=== PATIENT | female | born 1955 | race Caucasian/White ===

== ENCOUNTER 2017-10-22 20:15 | Inpatient (IN) | payer BC ==
[2017-10-22] MEDS ORDERED: ONDANSETRON HCL INJ/PF 4 MG/2 ML SDV IV ONE (20:42)
[2017-10-22] MEDS ORDERED: NORMAL SALINE 1000 ML 500 ML IV ONE (20:42)
--- NOTE | 2017-10-22 20:46 | ER Document Report ---
ED General - General Chief Complaint: General Weakness Stated Complaint: WEAKNESS Time Seen by Provider: 10/22/17 20:37 Notes: Patient is a 61-year-old female who comes emergency department for chief complaint of feeling lightheaded, dizzy, nauseated, and weak. Symptoms started earlier this evening, she states she was starting to drink wine and then vomited and felt this way ever since. She denies any chest pain, abdominal pain , flank pain, headache, focal numbness or weakness. She denies history of the same. She was started on chlorthalidone along with her lisinopril recently, denies other medications, she does drink alcohol regularly. She denies history of hyponatremia. TRAVEL OUTSIDE OF THE [place] IN LAST 30 DAYS: No - Related Data Allergies/Adverse Reactions: Penicillins Allergy (Severe, Verified 07/16/15 07:03) hives,swollen tongue Past Medical History - General Information source: Patient, Relative - Social History Smoking Status: Never Smoker Frequency of alcohol use: Heavy Drug Abuse: None Lives with: Family Family History: Reviewed & Not Pertinent - Past Medical History Cardiac Medical History: Reports: Hx Hypertension - medicated Denies: Hx Heart Attack Pulmonary Medical History: Denies: Hx Asthma Neurological Medical History: Denies: Hx Cerebrovascular Accident, Hx Seizures GI Medical History: Denies: Hx Hepatitis, Hx Hiatal Hernia, Hx Ulcer Infectious Medical History: Denies: Hx Hepatitis Past Surgical History: Denies: Hx Hysterectomy, Hx Mastectomy, Hx Open Heart Surgery, Hx Pacemaker - Immunizations Hx Diphtheria, Pertussis, Tetanus Vaccination: Yes Review of Systems - Review of Systems Constitutional: See HPI EENT: No symptoms reported Cardiovascular: See HPI Respiratory: No symptoms reported Gastrointestinal: No symptoms reported Genitourinary: No symptoms reported Female Genitourinary: No symptoms reported Musculoskeletal: No symptoms reported Skin: No symptoms reported Hematologic/Lymphatic: No symptoms reported Neurological/Psychological: See HPI Physical Exam - Vital signs Vitals: Temp Pulse Resp BP Pulse Ox 97.5 F 110 H 24 H 143/89 H 98 10/22/17 20:22 10/22/17 20:22 10/22/17 20:22 10/22/17 20:22 10/22/17 20:22 - Notes Notes: GENERAL: Patient ill-appearing, lying with her eyes closed, occasionally twitches, pale, appears nauseated. HEAD: Normocephalic, atraumatic. EYES: Pupils equal, round, and reactive to light. Extraocular movements intact. ENT: Oral mucosa moist, tongue midline. NECK: Full range of motion. Supple. Trachea midline. LUNGS: Clear to auscultation bilaterally, no wheezes, rales, or rhonchi. No respiratory distress. HEART: Regular rate and rhythm. No murmur ABDOMEN: Soft, non-tender. Non-distended. Bowel sounds present in all 4 quadrants. EXTREMITIES: Moves all 4 extremities spontaneously. No edema, normal radial and dorsalis pedis pulses bilaterally. No cyanosis. BACK: no cervical, thoracic, lumbar midline tenderness. No saddle anesthesia, normal distal neurovascular exam. NEUROLOGICAL: Alert and oriented x3. Normal speech. [cranial nerves II through XII grossly intact]. PSYCH: Normal affect, normal mood. SKIN: Pale, otherwise unremarkable Course - Re-evaluation Re-evalutation: Patient unwell-appearing, sitting with her eyes closed, however she will open them, she will cooperate with a normal neurological exam. Occasionally she has some random twitching. She is mildly tachycardic. EKG showing sinus tachycardia at a rate of 105, QTC of 42, IL interval 164. No T-wave inversions or ST segment changes in consecutive leads. Slight U shape of the T waves in the anterior lateral leads. CBC generally unremarkable, chemistry shows marked hyponatremia and hypokalemia , checking magnesium and phosphorus, giving magnesium, potassium, and slow replacement normal saline. Patient given Ativan after discussion with family and patient. Will discuss with hospitalist for admission, discussed in detail with family. Discussed with Dr. Hickey, hospitalist, patient will be admitted. - Vital Signs Vital signs: Temp Pulse Resp BP Pulse Ox 98.1 F 85 17 133/67 H 100 10/23/17 03:52 10/23/17 03:52 10/23/17 03:52 10/23/17 03:52 10/23/17 03:52 - Laboratory Result Diagrams: 10/23/17 05:15 10/23/17 05:15 Laboratory results interpreted by me: 10/22/17 10/22/17 20:18 20:18 Sodium 119.7 L* Potassium 2.6 L* Chloride 76 L Anion Gap 21 H Glucose 132 H Phosphorus 2.0 L AST 58 H ALT 59 H Creatine Kinase 229 H Albumin 5.1 H Discharge - Discharge Clinical Impression: Hyponatremia, Hypokalemia Condition: Serious Admitting Provider: Hospitalist Unit Admitted: ICU
[2017-10-22 21:00] LABS: ABSOLUTE MONOCYTES (AUTO) 0.4 10^3/uL (0.1-1.4); ABSOLUTE NEUT (AUTO) 3.3 10^3/uL (1.7-8.2); BASOPHILS % (AUTO) 0.3 % (0-2); EOSINOPHILS % (AUTO) 0.2 % (0-6); HEMATOCRIT 38.6 % (36.0-47.0); HEMOGLOBIN 13.6 g/dL (12.0-15.5); LYMPHOCYTES % (AUTO) 20.4 % (13-45); MEAN CORPUSCULAR HEMOGLOBIN 33.4 pg (27.0-33.4); MEAN CORPUSCULAR HGB CONC 35.3 g/dL (32.0-36.0); MEAN CORPUSCULAR VOLUME 95 fl (80-97); PLATELET COUNT 244 10^3/uL (150-450); RED BLOOD COUNT 4.08 10^6/uL (3.72-5.28); RED CELL DISTRIBUTION WIDTH 12.1 % (11.5-14.0); SEGMENTED NEUTROPHILS % (AUTO) 70.1 % (42-78); TOTAL CELLS COUNTED % (AUTO) 100 %; WHITE BLOOD COUNT 4.7 10^3/uL (4.0-10.5)
[2017-10-22 21:11] LABS: BLOOD UREA NITROGEN 10 mg/dL (7-20); CALCIUM 9.4 mg/dL (8.4-10.2); GLUCOSE 132 mg/dL (75-110)
[2017-10-22 21:12] LABS: ALANINE AMINOTRANSFERASE 59 U/L (9-52); ALBUMIN 5.1 g/dL (3.5-5.0); ALKALINE PHOSPHATASE 80 U/L (38-126); ASPARTATE AMINO TRANSFERASE 58 U/L (14-36); BILIRUBIN,DIRECT 0.2 mg/dL (0.0-0.4); BILIRUBIN,TOTAL 0.9 mg/dL (0.2-1.3); CHLORIDE 76 mmol/L (98-107); CREATINE KINASE 229 U/L (30-135); TOTAL PROTEIN 7.5 g/dL (6.3-8.2)
[2017-10-22 21:14] LABS: ALCOHOL < 10 mg/dL (NONE DETECTED)
[2017-10-22 21:16] LABS: ANION GAP 21 (5-19); CARBON DIOXIDE 23 mmol/L (22-30)
[2017-10-22 21:21] LABS: CREATINE KINASE MB 2.47 ng/mL (<4.55); POTASSIUM 2.6 mmol/L (3.6-5.0); SODIUM 119.7 mmol/L (137-145)
[2017-10-22 21:26] LABS: TROPONIN I < 0.012 ng/mL
[2017-10-22] MEDS ORDERED: LORAZEPAM INJ 2 MG/1 ML VIAL IV ONE (21:36)
[2017-10-22] MEDS: MAGNESIUM SULFATE/D5W 1 GM/100 ML RTUPB IV SCH ×2 (21:44→23:08)
[2017-10-22] MEDS ORDERED: NORMAL SALINE 1000 ML 1,000 ML IV PRN (21:46)
[2017-10-22] MEDS: POTASSI CL 20 MEQ/50 ML RIDER 20 MEQ/50 ML RTUPB IV SCH (22:04)
--- NOTE | 2017-10-22 22:09 | EKG REPORT ---
SEVERITY:- ABNORMAL ECG - SINUS TACHYCARDIA RIGHT AXIS DEVIATION INFERIOR INFARCT, AGE INDETERMINATE NONSPECIFIC T ABNORMALITIES, ANT-LAT LEADS : Confirmed by: Anoop Schwarz 22-Oct-2017 22:09:06
--- NOTE | 2017-10-22 22:15 | RADIOLOGY REPORT (SQ) ---
EXAM DESCRIPTION: CHEST SINGLE VIEW COMPLETED DATE/TIME: 10/22/2017 9:22 pm REASON FOR STUDY: weakness COMPARISON: None. EXAM PARAMETERS: NUMBER OF VIEWS: One view. TECHNIQUE: Single frontal radiographic view of the chest acquired. RADIATION DOSE: NA LIMITATIONS: None. FINDINGS: LUNGS AND PLEURA: No consolidation, pneumothorax or pleural effusion. MEDIASTINUM AND HILAR STRUCTURES: No masses. Contour normal. HEART AND VASCULAR STRUCTURES: Heart normal in size. Normal vasculature. BONES: No acute findings. HARDWARE: None in the chest. IMPRESSION: No acute radiographic finding in the chest. TECHNICAL DOCUMENTATION: JOB ID: [id number] 2010 [employer]- All Rights Reserved Reading location - IP/workstation name: [email or web address]
[2017-10-22 23:25] LABS: APPEARANCE,URINE CLEAR; BILIRUBIN,URINE NEGATIVE (NEGATIVE); COLOR,URINE YELLOW; GLUCOSE, URINE NEGATIVE (NEGATIVE); KETONES,URINE 80 mg/dL (NEGATIVE); LEUKOCYTE ESTERASE,URINE NEGATIVE (NEGATIVE); NITRITE,URINE NEGATIVE (NEGATIVE); PROTEIN,URINE NEGATIVE (NEGATIVE); URINE SPECIFIC GRAVITY 1.011; UROBILINOGEN,URINE NEGATIVE mg/dL (<2.0)
[2017-10-23] MEDS: POTASSI CL 20 MEQ/50 ML RIDER 20 MEQ/50 ML RTUPB IV SCH (00:04)
[2017-10-23] MEDS ORDERED: PROMETHAZINE HCL INJ 25 MG/1 ML VIAL IV PRN ×2 (00:14→07:57)
[2017-10-23] MEDS ORDERED: ACETAMINOPHEN 325 MG TABLET PO PRN (00:14)
[2017-10-23] MEDS ORDERED: SODIUM CHLORIDE 3% 500 ML IV ONE (00:15)
[2017-10-23] MEDS ORDERED: POTASSIUM PHOS,M-BASIC-D-BASIC 15 MMOL in NORMAL SALINE 250 ML IV ONE (00:22)
[2017-10-23] MEDS ORDERED: NORMAL SALINE 1000 ML 1,000 ML IV ONE ×2 (00:23→01:25)
[2017-10-23] MEDS ORDERED: LORAZEPAM INJ 2 MG/1 ML VIAL IV ONE (00:37)
--- NOTE | 2017-10-23 03:54 | PDOC H&P ---
History of Present Illness Admission Date/PCP: 10/22/17 22:39 DEBORAH LYNN MD Patient complains of: Dizziness History of Present Illness: CAROLANN WILSON is a 61 year old female who comes to the emergency department complaining of dizziness and generalized weakness. Patient tells me that yesterday afternoon she was feeling woozy with headaches, she took one Tylenol but symptoms did not improved. She was with some friends at home, she had a glass of wine started feeling worse, she went to lay down and started with tremors, sweaty, had one bowel movement. [place] nauseous and had one episode of nonbloody vomiting. Tells me she was a started on chlorthalidone last Tuesday. Denies fevers, chills, abdominal pain, shortness of breath, headaches, diarrhea , hematuria frequency. In the emergency department Sodium found in 119, patient looks very dehydrated. Heart rate 110s RR 24 at admission. Past Medical History Cardiac Medical History: Reports: Hypertension - medicated Denies: Myocardial Infarction Pulmonary Medical History: Denies: Asthma Neurological Medical History: Denies: Seizures GI Medical History: Denies: Hepatitis, Hiatal Hernia Hematology: Denies: Anemia, Sickle Cell Disease Past Surgical History Past Surgical History: Denies: Amputation, Hysterectomy, Mastectomy, Pacemaker Social History Information Source: Patient Lives with: Family Smoking Status: Never Smoker Amount of Alcoholic Beverages Per Day: She drinks 2 glasses of wine a day Drugs: None - Advance Directive Resuscitation Status: Full Code Family History Family History: Father at 73 years old with NC Parental Family History Reviewed: Yes - Mother at 75 with metastatic lung cancer Children Family History Reviewed: NA Sibling(s) Family History Reviewed.: NA Medication/Allergy Home Medications: Citalopram Hydrobromide [Celexa 10 mg Tablet] 10 mg PO QHS 07/10/15 Lisinopril 40 mg PO QHS 07/10/15 Allergies/Adverse Reactions: Penicillins Allergy (Severe, Verified 07/16/15 07:03) hives,swollen tongue Review of Systems Review of Systems: As outlined in the HPI, all others negative Physical Exam Vital Signs: Temp Pulse Resp BP Pulse Ox 97.8 F 110 H 20 130/88 H 100 10/23/17 02:30 10/22/17 20:22 10/23/17 03:00 10/23/17 02:30 10/23/17 03:00 Additional comments: General appearance: She looks in distress, with mild tremors, sick looking. Head: Normocephalic Eyes: PEERL, EOMI, vision is grossly intact. Ears: External auditory canal and tympanic membranes clear, hearing grossly intact. Nose: No nasal discharge. Throat: Oral cavity and pharynx normal. No inflammation, swelling, exudate or lesions. Oral mucosa very dry Neck: Neck supple, nontender without lymphadenopathy, masses or thyromegaly. Cardiac: Normal S1 and S2. No S3, S4 or murmurs. Rhythm is regular. There is no peripheral edema, cyanosis or pallor. Extremities are warm and well perfused. Capillary refill is less than 2 seconds. No carotid bruits. Lungs: Clear to auscultation and percussion without rales, rhonchi, wheezing or diminished breath sounds. Not using accessory muscles. Abdomen: Positive bowel sounds. Soft. Nondistended, nontender. No guarding or rebound. No masses. No hepatosplenomegaly Extremities: No significant deformity or joint abnormality. No edema. Peripheral pulses intact. No varicosities. Neurological: Cranial nerves II through XII grossly intact. Strength and sensation symmetric and intact throughout. Reflexes 2+ throughout. Upper extremities tremors. Skin: Skin pale, normal texture and turgor with no lesions or eruptions, warm and dry. Psychiatric: The mental examination revealed the patient was oriented to person , place, and time. The patient was able to demonstrate good judgment on recent , without hallucinations, abnormal affect or abnormal behaviors. Results Laboratory Results: 10/23/17 02:31 10/22/17 10/23/17 23:00 02:31 Sodium 121.8 L Urine Color YELLOW Urine Appearance CLEAR Urine pH 8.0 Ur Specific [place] 1.011 Urine Protein NEGATIVE Urine Glucose (UA) NEGATIVE Urine Ketones 80 H Urine Blood NEGATIVE Urine Nitrite NEGATIVE Ur Leukocyte Esterase NEGATIVE Urine WBC (Auto) 3 Urine RBC (Auto) 2 10/22/17 10/22/17 20:18 20:18 WBC 4.7 Hgb 13.6 Hct 38.6 Plt Count 244 Seg Neutrophils % 70.1 Lymphocytes % 20.4 Monocytes % 9.0 Eosinophils % 0.2 Basophils % 0.3 Absolute Neutrophils 3.3 Absolute Lymphocytes 1.0 Absolute Monocytes 0.4 Absolute Eosinophils 0.0 Absolute Basophils 0.0 Sodium 119.7 L* Potassium 2.6 L* Chloride 76 L Carbon Dioxide 23 Anion Gap 21 H BUN 10 Creatinine 0.57 Est GFR ( Amer) > 60 Est GFR (Non-Af Amer) > 60 Glucose 132 H Calcium 9.4 Total Bilirubin 0.9 Direct Bilirubin 0.2 AST 58 H ALT 59 H Alkaline Phosphatase 80 Creatine Kinase 229 H Total Protein 7.5 Albumin 5.1 H Serum Alcohol < 10 Impressions: Chest X-Ray 10/22/17 20:45 IMPRESSION: No acute radiographic finding in the chest. Assessment & Plan - Diagnosis (1) Hyponatremia with extracellular fluid depletion Is this a current diagnosis for this admission?: Yes Plan: Patient has hypovolemic hyponatremia/severe hyponatremia, sodium 119 mEq/L with symptoms. We will give 2 L bolus of normal saline will place an order for 3% of normal saline, 1 back to be given. Will check serum sodium every 4 hours. Please order for serum and urine osmolality as well as urine sodium. TSH ordered. (2) Hypokalemia Is this a current diagnosis for this admission?: Yes Plan: Potassium 2.6, 20 mEq of KCl given in the ED. Will recheck potassium with morning labs as well as magnesium. (3) Hypophosphatemia Is this a current diagnosis for this admission?: Yes Plan: Phosphorous 2, place an order for potassium phosphate replacement (4) Rhabdomyolysis Qualifiers: Rhabdomyolysis type: non-traumatic Qualified Code(s): M62.82 - Rhabdomyolysis Is this a current diagnosis for this admission?: Yes Plan: As a CK of 229, there is a very mild rhabdomyolysis, I expect this to go to normal values after IV fluids hydration. - Time Time Spent: 30 to 50 Minutes - Inpatient Certification Based on my medical assessment, after consideration of the patient's comorbidities, presenting symptoms, or acuity I expect that the services needed warrant INPATIENT care.: Yes I certify that my determination is in accordance with my understanding of Medicare's requirements for reasonable and necessary INPATIENT services [42 CFR 412.3e].: Yes Medical Necessity: Need For Continuous Telemetry Monitoring, Need for Neurological Checks, Risk of Diagnosis Which Will Require Inpatient Eval/Care/ Monitoring
[2017-10-23 05:37] LABS: OSMOLALITY,URINE 125 mOsm/kg (300-900)
[2017-10-23 05:40] LABS: INTERNATIONAL RATION (INR) 1.02; PROTHROMBIN TIME 13.9 SEC (11.4-15.4)
[2017-10-23 05:41] LABS: URINE AMPHETAMINES SCREEN NEGATIVE; URINE BENZODIAZEPINES SCREEN NEGATIVE; URINE COCAINE SCREEN NEGATIVE; URINE MARIJUANA (THC) SCREEN NEGATIVE; URINE METHADONE SCREEN NEGATIVE; URINE PHENCYCLIDINE SCREEN NEGATIVE
[2017-10-23 05:48] LABS: URINE BARBITURATES SCREEN NEGATIVE
[2017-10-23 05:55] LABS: URINE SODIUM 48 mmol/L (30-90)
[2017-10-23 06:07] LABS: ANION GAP 13 (5-19); BLOOD UREA NITROGEN 5 mg/dL (7-20); CALCIUM 8.4 mg/dL (8.4-10.2); CARBON DIOXIDE 21 mmol/L (22-30); CHLORIDE 94 mmol/L (98-107); GLUCOSE 106 mg/dL (75-110); PHOSPHORUS 2.6 mg/dL (2.5-4.5); POTASSIUM 3.2 mmol/L (3.6-5.0); SODIUM 128.3 mmol/L (137-145)
[2017-10-23 06:12] LABS: HEMATOCRIT 36.2 % (36.0-47.0); HEMOGLOBIN 12.7 g/dL (12.0-15.5); MEAN CORPUSCULAR HEMOGLOBIN 33.6 pg (27.0-33.4); MEAN CORPUSCULAR HGB CONC 35.2 g/dL (32.0-36.0); MEAN CORPUSCULAR VOLUME 95 fl (80-97); PLATELET COUNT 226 10^3/uL (150-450); RED CELL DISTRIBUTION WIDTH 11.9 % (11.5-14.0)
[2017-10-23] MEDS ORDERED: POTASSI CL 20 MEQ/NS 1L 1000 ML IV PRN (06:52)
[2017-10-23 09:59] LABS: ANION GAP 13 (5-19); BLOOD UREA NITROGEN 4 mg/dL (7-20); CALCIUM 8.8 mg/dL (8.4-10.2); CARBON DIOXIDE 22 mmol/L (22-30); CHLORIDE 94 mmol/L (98-107); GLUCOSE 107 mg/dL (75-110); POTASSIUM 3.2 mmol/L (3.6-5.0)
[2017-10-23] MEDS: ENOXAPARIN SODIUM INJ 40 MG/0.4 ML DISP.SYRIN SUBCUT SCH (10:55)
--- NOTE | 2017-10-23 15:05 | Progress Note ---
Provider Note Provider Note: This is a 61-year-old woman admitted with symptomatic critical hyponatremia. Subjective: She is overall feeling significantly better. She is no longer trembling. She does not feel confused. Feels tired from having been awake most of the night. She feels that her weakness is improving and she was able to get up to the bedside commode. She is making clear yellow urine. Her appetite is good and she is able to eat and drink. No chest pain or difficulty breathing. Objective: Patient has stable vitals. She is lying in her hospital bed awake alert oriented no acute distress. Cranial nerves II through XII are grossly intact. Strength is 5 out of 5 in all extremities. She is oriented to person place situation. Regular rate rhythm without murmurs. Lungs clear to auscultation bilaterally. Skin shows sunburn. Abdomen soft nontender nondistended normal bowel sounds, no lower extremity edema. Assessment/plan: This 61-year-old woman has significantly improved hyponatremia with fluid administration. He do not know how long her sodium been low and I am opting for a slow replacement schedule. I have stopped her saline and have asked her to just eat and drink normally. Her sodium has stayed in the 128 129 range since early this morning with that strategy. Continue to check sodium every 4 hours and approximately 24 hours after sodium repletion started we can restart normal saline if needed. Her potassium was replaced overnight and is still low at 3.2 and so I have ordered 40 mEq of potassium 2 over the next 8 hours. He is hemodynamically stable and feeling better.
[2017-10-23 17:15] LABS: SODIUM 130.3 mmol/L (137-145)
[2017-10-23] MEDS ORDERED: CITALOPRAM HYDROBROMIDE 20 MG TABLET PO SCH (22:00)
[2017-10-23] MEDS: POTASSIUM CHLORIDE 10 MEQ CAPSULE.ER PO SCH (22:40)
[2017-10-24 05:07] LABS: HEMOGLOBIN 12.9 g/dL (12.0-15.5); MEAN CORPUSCULAR HEMOGLOBIN 34.3 pg (27.0-33.4); MEAN CORPUSCULAR HGB CONC 34.9 g/dL (32.0-36.0); MEAN CORPUSCULAR VOLUME 98 fl (80-97); PLATELET COUNT 220 10^3/uL (150-450); RED BLOOD COUNT 3.76 10^6/uL (3.72-5.28); RED CELL DISTRIBUTION WIDTH 11.9 % (11.5-14.0); WHITE BLOOD COUNT 3.7 10^3/uL (4.0-10.5)
[2017-10-24 05:12] LABS: INTERNATIONAL RATION (INR) 0.92; PROTHROMBIN TIME 12.8 SEC (11.4-15.4)
[2017-10-24] MEDS: POTASSIUM CHLORIDE 10 MEQ CAPSULE.ER PO SCH (05:14)
[2017-10-24 05:30] LABS: ANION GAP 13 (5-19); BLOOD UREA NITROGEN 11 mg/dL (7-20); CALCIUM 9.1 mg/dL (8.4-10.2); CARBON DIOXIDE 26 mmol/L (22-30); CHLORIDE 95 mmol/L (98-107); CREATINE KINASE 210 U/L (30-135); GLUCOSE 88 mg/dL (75-110); PHOSPHORUS 2.5 mg/dL (2.5-4.5); POTASSIUM 3.6 mmol/L (3.6-5.0); SODIUM 133.5 mmol/L (137-145)
[2017-10-24] MEDS ORDERED: (PENDING PHARMACY ID) (Flaxseed Oil [Flax Seed Oil] 1,000 MG) PO SCH (10:00)
[2017-10-24] MEDS: ENOXAPARIN SODIUM INJ 40 MG/0.4 ML DISP.SYRIN SUBCUT SCH (10:28)
[2017-10-24 14:26] VITALS: BP 133/67
--- NOTE | 2017-10-24 14:29 | PDOC DISCHARGE SUMMARY ---
General - Admit/Disc Date/PCP Admission Date/Primary Care Provider: 10/22/17 22:39 DEBORAH LYNN MD Discharge Date: 10/24/17 - Additional Information Resuscitation Status: Full Code Home Medications: Citalopram Hydrobromide [Celexa 10 mg Tablet] 10 mg PO QHS 07/10/15 Flaxseed Oil [Flax Seed Oil] 1,000 mg PO DAILY 10/23/17 Lisinopril [Prinivil 40 mg Tablet] 40 mg PO QHS 10/23/17 History of Present Illness History of Present Illness: CAROLANN WILSON is a 61 year old female Physical Exam Vital Signs: Temp Pulse Resp BP Pulse Ox 97.6 F 68 15 137/86 H 100 10/24/17 11:33 10/24/17 11:33 10/24/17 11:33 10/24/17 11:33 10/24/17 11:33 Intake & Output 10/23/17 10/24/17 10/25/17 06:59 06:59 06:59 Intake Total 20 1922 1255 Output Total 1400 2950 Balance -1380 -1028 1255 Weight 70.7 kg 67.9 kg Results Laboratory Results: 10/24/17 04:12 10/24/17 08:26 10/23/17 10/23/17 10/24/17 16:15 20:29 00:30 WBC RBC Hgb Hct MCV MCH MCHC RDW Plt Count Sodium 130.3 L 132.4 L 132.0 L Potassium Chloride Carbon Dioxide Anion Gap BUN Creatinine Est GFR ( Amer) Est GFR (Non-Af Amer) Glucose Calcium Phosphorus Magnesium TSH Free T4 10/24/17 10/24/17 10/24/17 04:12 04:12 04:12 WBC 3.7 L RBC 3.76 Hgb 12.9 Hct 37.0 MCV 98 H MCH 34.3 H MCHC 34.9 RDW 11.9 Plt Count 220 Sodium 133.5 L Potassium 3.6 Chloride 95 L Carbon Dioxide 26 Anion Gap 13 BUN 11 Creatinine 0.57 Est GFR ( Amer) > 60 Est GFR (Non-Af Amer) > 60 Glucose 88 Calcium 9.1 Phosphorus 2.5 Magnesium 2.2 TSH 6.30 H Free T4 10/24/17 10/24/17 04:12 08:26 WBC RBC Hgb Hct MCV MCH MCHC RDW Plt Count Sodium 133.9 L Potassium Chloride Carbon Dioxide Anion Gap BUN Creatinine Est GFR ( Amer) Est GFR (Non-Af Amer) Glucose Calcium Phosphorus Magnesium TSH Cancelled Free T4 1.11 10/23/17 10/24/17 16:15 04:12 Creatine Kinase 240 H 210 H Impressions: Chest X-Ray 10/22/17 20:45 IMPRESSION: No acute radiographic finding in the chest. Plan Discharge Plan: She will follow-up with PCP for further workup of elevated TSH and reevaluation of blood pressure. Time Spent: Greater than 30 Minutes
== END 2017-10-24 14:49 | disposition home or self-care (01) | DRG 641 ==
LOC: ER 20:15 → EH 22:39 → 3W 10-23 03:47
PROVIDERS: ADMIT Internal Medicine; ATTEND Internal Medicine
DX: E87.1 Hypo-osmolality and hyponatremia (principal); M62.82 Rhabdomyolysis; E83.39 Other disorders of phosphorus metabolism; E87.6 Hypokalemia; I10 Essential (primary) hypertension; Z79.899 Other long term (current) drug therapy; Z88.0 Allergy status to penicillin
CPT/HCPCS: 36415; 71045; 80048; 80053; 80307; 81001; 82550; 82553; 83735; 83930; 83935; 84100; 84295; 84300; 84439; 84443; 84484; 85025; 85027; 85610; 93005; 93010; 96361; 96365; 96368; 96375; 99285; J1650; J2060; J2405; J3475; J3480; J3490; J7030